=== PATIENT | male | born 1990 | race Caucasian/White ===

== ENCOUNTER → 2019-01-05 | Outpatient (CLI) | payer OTHER ==
[~2019-01-05] MED LIST: GASTROGRAFIN SOLUTION 30ML (Q9963) As Ordered ONE; ISOVUE-370 76% 100ML VIAL (Q9967) As Ordered ONE
--- NOTE | 2019-01-06 10:31 | REP ---
CT chest with IV contrast: History: Choroidal melanoma. CT contrast dose: 100 mL of intravenous Isovue [address] findings: There is no evidence of pleural or pericardial effusion. No hilar or mediastinal mass or adenopathy is observed. No adrenal lesion is seen. No focal liver lesion is appreciated. The visualized upper abdominal structures are unremarkable. The lung ayon are clear. No bony destructive lesion is seen. Impression: Negative CT study of the chest with IV contrast. No active disease. Electronically Signed by Joshua Umanzor MD 01/06/2019 07:10 P
--- NOTE | 2019-01-06 10:33 | REP ---
CT abdomen and pelvis without and with IV contrast: With oral contrast. History: Choroidal melanoma. CT contrast dose: 100 mL of intravenous Isovue [address] findings: The liver and the spleen are normal in size, homogeneous in texture. No adrenal lesion is seen. No abnormalities noted in the pancreas. The gallbladder is unremarkable. No renal mass lesion is seen. The kidneys enhance symmetrically and are morphologically intact. No retroperitoneal mass or adenopathy is observed. No mesenteric mass or adenopathy is seen. Small and large intestinal bowel loops are normal in the abdomen and pelvis. There are three or four normal appearing small bowel mesenteric lymph nodes in the right lower quadrant. The largest of these measures 9 mm in short axis dimension. A normal appendix is seen in the right lower quadrant. Urinary bladder, prostate, and seminal vesicles are unremarkable. No abdominal wall defect is seen. No bony destructive lesion is observed. Impression: No abnormality noted. Electronically Signed by Joshua Umanzor MD 01/06/2019 07:10 P
== END ==
LOC: M RAD 14:29
PROVIDERS: ATTEND Ophthalmology Retina Specialist
DX: C69.30 Malignant neoplasm of unspecified choroid (principal)
CPT/HCPCS: 71260; 74178; Q9963; Q9967